=== PATIENT | male | born 1980 | race Caucasian/White ===

== ENCOUNTER 2017-08-27 18:01 | Emergency (ER) | payer SELFPAY ==
[~2017-08-27] VITALS: Ht 185.4 cm; Wt 92.2 kg
[2017-08-27 18:07] VITALS: BP 141/89; PULSE 86; RESP 16; TEMP 99.1; O2SAT 98
[2017-08-27] MEDS ORDERED: KETOROLAC TROMETHAMINE 60 MG/2 ML (IM) VIAL IM ONE (18:30)
--- NOTE | 2017-08-27 19:13 | RADRPT ---
EXAM DATE/TIME: 08/27/2017 18:40 [place] COMPARISON: No previous studies available for comparison. INDICATIONS : Left anterior, superior rib pain post lifting yard equipment. MEDICAL HISTORY : Previous left rib, scapula and clavicle fractures SURGICAL HISTORY : ORIF left ribs, ORIF left scapula, ORIF left clavicle, Pain pump implant ENCOUNTER: Initial ACUITY: 3 days PAIN SCORE: 8/10 LOCATION: Left chest FINDINGS: His previous plate and screw fixation of the left fourth, fifth, sixth, seventh and eighth ribs. Also previous fixation of the scapula and left clavicle. Scarring left lung base and pleura. Spinal stimu lator wire is present. No focal consolidation. No pneumothorax. CONCLUSION: 1. No acute fracture. No pneumothorax. Extensive postsurgical change in the left hemithorax as above with basilar scarring. Matthew Her MD on August 27, 2017 at 19:10 Board Certified Radiologist. This report was verified electronically.
[2017-08-27] MEDS ORDERED: IBUP1TAB7 PO (19:28)
[2017-08-27] MEDS ORDERED: ROBA750T PO (19:30)
[2017-08-27] MEDS ORDERED: TRAM50 PO (19:30)
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
== END 2017-08-27 19:36 | disposition home or self-care (01) ==
LOC: PHEFT 18:01
DX: S29.019A Strain of muscle and tendon of unspecified wall of thorax, initial encounter (principal); Y93.H2 Activity, gardening and landscaping; F32.9 Major depressive disorder, single episode, unspecified; F17.210 Nicotine dependence, cigarettes, uncomplicated; Z88.8 Allergy status to other drugs, medicaments and biological substances; Z79.899 Other long term (current) drug therapy
CPT/HCPCS: 71101; 96372; 99283; J1885